=== PATIENT | male | born 1960 | race Caucasian/White ===

== ENCOUNTER → 2016-12-01 | Outpatient (REF) | payer BC ==
[2016-12-01 13:00] LABS: ANION GAP 7 MEQ/L (8-16); BLOOD UREA NITROGEN 13 MG/DL (7-18); CALCIUM LEVEL 9.3 MG/DL (8.5-10.1); CARBON DIOXIDE LEVEL 30 MEQ/L (21-32); CHLORIDE LEVEL 96 MEQ/L (98-107); CREATININE FOR GFR 0.97 MG/DL (0.70-1.30); GLOMERULAR FILTRATION RATE > 60.0 (>56); GLUCOSE, FASTING 88 MG/DL (70-105); SODIUM LEVEL 133 MEQ/L (136-145)
[2016-12-01 13:03] LABS: POTASSIUM SERUM 5.3 MEQ/L (3.5-5.1)
== END ==
LOC: M SFHCADAM 08:20
PROVIDERS: ATTEND Physician Assistant
DX: Q23.1 Congenital insufficiency of aortic valve (principal); I10 Essential (primary) hypertension

== ENCOUNTER → 2017-01-12 | Outpatient (REF) | payer BC ==
[2017-01-12 13:10] LABS: ANION GAP 8 MEQ/L (8-16); BLOOD UREA NITROGEN 14 MG/DL (7-18); CARBON DIOXIDE LEVEL 28 MEQ/L (21-32); CHLORIDE LEVEL 103 MEQ/L (98-107); CREATININE FOR GFR 0.86 MG/DL (0.70-1.30); GLOMERULAR FILTRATION RATE > 60.0 (>56); GLUCOSE, FASTING 92 MG/DL (70-105); POTASSIUM SERUM 4.4 MEQ/L (3.5-5.1); SODIUM LEVEL 139 MEQ/L (136-145)
== END ==
LOC: M SFHCPLAZ 10:59
PROVIDERS: ATTEND Physician Assistant
DX: E87.5 Hyperkalemia (principal); E87.1 Hypo-osmolality and hyponatremia

== ENCOUNTER → 2018-09-07 | Outpatient (REF) | payer BC ==
[2018-09-07 20:01] LABS: HEMATOCRIT 42.4 % (42.0-52.0); HEMOGLOBIN 14.3 g/dl (13.5-17.5); MEAN CORPUSCULAR HGB CONC 33.7 g/dl (32.0-36.5); MEAN CORPUSCULAR VOLUME 88.9 fl (80.0-96.0); PLATELET COUNT, AUTOMATED 540 10^3/uL (150-450); RED BLOOD COUNT 4.77 10^6/uL (4.30-6.10); WHITE BLOOD COUNT 11.1 10^3/uL (4.0-10.0)
[2018-09-07 20:02] LABS: ALBUMIN 3.9 GM/DL (3.2-5.2); ALT/SGPT 23 U/L (12-78); BILIRUBIN,TOTAL 0.3 MG/DL (0.2-1.0); BLOOD UREA NITROGEN 16 MG/DL (7-18); CARBON DIOXIDE LEVEL 28 MEQ/L (21-32); CHLORIDE LEVEL 102 MEQ/L (98-107); CHOLESTEROL LEVEL 211 MG/DL (<200); CHOLESTEROL RISK RATIO 2.397 (<5); CREATININE FOR GFR 1.08 MG/DL (0.70-1.30); GLOMERULAR FILTRATION RATE > 60.0 (>56); GLUCOSE, FASTING 72 MG/DL (70-100); HDL CHOLESTEROL 88 MG/DL (>40); LDL CHOLESTEROL 96 MG/DL (<100); NON-HDL-C 123 MG/DL; SODIUM LEVEL 136 MEQ/L (136-145); TOTAL PROTEIN 6.9 GM/DL (6.4-8.2); TRIGLYCERIDES LEVEL 134 MG/DL (<150)
== END ==
LOC: M SFHCADAM 15:47
PROVIDERS: ATTEND Physician Assistant
DX: I10 Essential (primary) hypertension (principal); E55.9 Vitamin D deficiency, unspecified

== ENCOUNTER → 2019-11-22 | Outpatient (REF) | payer BC | LOC: M SFHCADAM 09:04 | PROVIDERS: ATTEND Physician Assistant | DX: I10 Essential (primary) hypertension (principal); F17.200 Nicotine dependence, unspecified, uncomplicated; Z53.8 Procedure and treatment not carried out for other reasons ==

== ENCOUNTER → 2020-12-16 | Outpatient (REF) | payer BC ==
[2020-12-16 17:15] LABS: HEMOGLOBIN 15.8 g/dl (13.5-17.5); MEAN CORPUSCULAR HEMOGLOBIN 31.6 pg (27.0-33.0); MEAN CORPUSCULAR HGB CONC 34.3 g/dl (32.0-36.5); PLATELET COUNT, AUTOMATED 530 10^3/uL (150-450); WHITE BLOOD COUNT 10.7 10^3/uL (4.0-10.0)
[2020-12-16 17:47] LABS: ALT/SGPT 23 U/L (12-78); BILIRUBIN,TOTAL 0.6 MG/DL (0.2-1.0); BLOOD UREA NITROGEN 14 MG/DL (7-18); CALCIUM LEVEL 9.6 MG/DL (8.5-10.1); CARBON DIOXIDE LEVEL 30 MEQ/L (21-32); CHLORIDE LEVEL 99 MEQ/L (98-107); CHOLESTEROL LEVEL 212 MG/DL (<200); CHOLESTEROL RISK RATIO 2.231 (<5); CREATININE FOR GFR 0.86 MG/DL (0.70-1.30); FREE T4 0.84 NG/DL (0.76-1.46); GLOMERULAR FILTRATION RATE > 60.0 (>56); GLUCOSE, FASTING 77 MG/DL (70-100); HDL CHOLESTEROL 95 MG/DL (>40); LDL CHOLESTEROL 104 MG/DL (<100); NON-HDL-C 117 MG/DL; POTASSIUM SERUM 4.5 MEQ/L (3.5-5.1); SODIUM LEVEL 134 MEQ/L (136-145); THYROID STIMULATING HORMONE 0.817 uIU/ML (0.358-3.740); TOTAL PROTEIN 7.1 GM/DL (6.4-8.2); TRIGLYCERIDES LEVEL 65 MG/DL (<150)
[2020-12-16 17:50] LABS: CREATININE, URINE 63.2 MG/DL; MALB URINE SIEMENS 7.3 MG/L; MAU/CREAT RATIO 11.5 MCG/MG (0.0-30.0); TOTAL 25(OH) VITAMIN D 13.1 NG/ML (30.0-100.0)
== END ==
LOC: M SFHCADAM 11:57
PROVIDERS: ATTEND Physician Assistant
DX: K21.9 Gastro-esophageal reflux disease without esophagitis (principal); F17.210 Nicotine dependence, cigarettes, uncomplicated; I10 Essential (primary) hypertension; E55.9 Vitamin D deficiency, unspecified; Q23.1 Congenital insufficiency of aortic valve; N52.9 Male erectile dysfunction, unspecified; Z12.5 Encounter for screening for malignant neoplasm of prostate
CPT/HCPCS: 80053; 80061; 82043; 82306; 84439; 84443; 85027; G0103

== ENCOUNTER → 2021-06-29 | Outpatient (CLI) | payer BC | LOC: M CARPUL 10:14 | PROVIDERS: ATTEND Physician Assistant | DX: Q23.1 Congenital insufficiency of aortic valve (principal) ==

== ENCOUNTER → 2022-06-18 | Outpatient (CLI) | payer BC | LOC: M ADAMS 10:50 | PROVIDERS: ATTEND Physician Assistant | DX: M54.50 Low back pain, unspecified (principal) ==

== ENCOUNTER → 2022-06-18 | Outpatient (REF) | payer BC ==
[2022-06-19 15:10] LABS: HERPES ZOSTER, VARICELLA IgG 1259 index (Immune >165); HERPES ZOSTER, VARICELLA IgM <0.91 index (0.00-0.90)
== END ==
LOC: M SFHCADAM 10:46
PROVIDERS: ATTEND Physician Assistant
DX: M54.50 Low back pain, unspecified (principal)

== ENCOUNTER → 2022-07-05 | Outpatient (REF) | payer BC ==
[2022-07-05 13:36] LABS: BASO # 0.1 10^3/uL (0.0-0.2); BASO % 0.4 % (0.0-1.0); EOS % 0.1 % (0.0-3.0); HEMATOCRIT 43.1 % (42.0-52.0); HEMOGLOBIN 14.5 g/dl (13.5-17.5); LYMPH # 2.2 10^3/uL (1.5-5.0); LYMPH % 9.6 % (24.0-44.0); MEAN CORPUSCULAR HEMOGLOBIN 30.5 pg (27.0-33.0); MEAN CORPUSCULAR HGB CONC 33.6 g/dl (32.0-36.5); MEAN CORPUSCULAR VOLUME 90.5 fl (80.0-96.0); MONO # 1.3 10^3/uL (0.0-0.8); MONO % 5.4 % (2.0-8.0); NEUTROPHILS # 19.1 10^3/uL (1.5-8.5); NEUTROPHILS % 82.6 % (36.0-66.0); PLATELET COUNT, AUTOMATED 578 10^3/uL (150-450); RED BLOOD COUNT 4.76 10^6/uL (4.30-6.10); WHITE BLOOD COUNT 23.2 10^3/uL (4.0-10.0)
[2022-07-05 13:50] LABS: CREATININE, URINE 181.2 MG/DL; MAU/CREAT RATIO 3.8 MCG/MG (0.0-30.0)
[2022-07-05 16:22] LABS: ALBUMIN 3.3 G/DL (3.2-5.2); ALKALINE PHOSPHATASE 134 U/L (46-116); ALT/SGPT 16 U/L (7.0-40); AST/SGOT 14 U/L (<34); BILIRUBIN,TOTAL 0.5 MG/DL (0.3-1.2); BLOOD UREA NITROGEN 18 MG/DL (9-23); CALCIUM LEVEL 8.8 MG/DL (8.3-10.6); CARBON DIOXIDE LEVEL 28 MMOL/L (20-31); CHLORIDE LEVEL 95 MMOL/L (98-107); CHOLESTEROL LEVEL 189 MG/DL (<200); CHOLESTEROL RISK RATIO 1.95 (<5); CREATININE FOR GFR 0.92 MG/DL (0.70-1.30); FREE T4 1.14 NG/DL (0.89-1.76); GLOMERULAR FILTRATION RATE > 60.0 (>49); GLUCOSE, FASTING 100 MG/DL (74-106); HDL CHOLESTEROL 96.6 MG/DL (>40); NON-HDL-C 92 MG/DL; POTASSIUM SERUM 4.7 MMOL/L (3.5-5.1); SODIUM LEVEL 131 MMOL/L (136-145); THYROID STIMULATING HORMONE 0.881 uIU/ML (0.55-4.78); TOTAL PROTEIN 6.4 G/DL (5.7-8.2); TRIGLYCERIDES LEVEL 72 MG/DL (<150)
[2022-07-06 18:09] LABS: FREE LAMBDA LIGHT CHAINS SERUM 13.8 mg/L (5.7-26.3); KAPPA/LAMBDA RATIO SERUM 1.01 (0.26-1.65)
== END ==
LOC: M SFHCADAM 07:06
PROVIDERS: ATTEND Physician Assistant
DX: R79.82 Elevated C-reactive protein (CRP) (principal); M54.50 Low back pain, unspecified; F17.210 Nicotine dependence, cigarettes, uncomplicated; I10 Essential (primary) hypertension; E55.9 Vitamin D deficiency, unspecified; I35.0 Nonrheumatic aortic (valve) stenosis; K21.9 Gastro-esophageal reflux disease without esophagitis; E78.00 Pure hypercholesterolemia, unspecified; Z12.5 Encounter for screening for malignant neoplasm of prostate
CPT/HCPCS: 80053; 80061; 82043; 83521; 84439; 84443; 85025; 86140; G0103

== ENCOUNTER → 2022-07-06 | Outpatient (CLI) | payer BC ==
[~2022-07-06] MED LIST: PROHANCE 279.3MG/ML 15ML VIAL As Ordered ONE; PROHANCE 279.3MG/ML 5ML VIAL As Ordered ONE
== END ==
LOC: M RAD 16:09
PROVIDERS: ATTEND Physician Assistant
DX: R79.82 Elevated C-reactive protein (CRP) (principal); M54.50 Low back pain, unspecified

== ENCOUNTER → 2022-07-30 | Outpatient (REF) | payer BC ==
[2022-07-30 13:01] LABS: BASO # 0.1 10^3/uL (0.0-0.2); BASO % 0.4 % (0.0-1.0); EOS % 0.3 % (0.0-3.0); HEMATOCRIT 39.1 % (42.0-52.0); HEMOGLOBIN 13.2 g/dl (13.5-17.5); LYMPH # 2.5 10^3/uL (1.5-5.0); LYMPH % 21.3 % (24.0-44.0); MEAN CORPUSCULAR HEMOGLOBIN 30.6 pg (27.0-33.0); MEAN CORPUSCULAR HGB CONC 33.8 g/dl (32.0-36.5); MEAN CORPUSCULAR VOLUME 90.5 fl (80.0-96.0); MONO # 0.8 10^3/uL (0.0-0.8); MONO % 7.1 % (2.0-8.0); NEUTROPHILS % 68.3 % (36.0-66.0); PLATELET COUNT, AUTOMATED 453 10^3/uL (150-450); RED BLOOD COUNT 4.32 10^6/uL (4.30-6.10); WHITE BLOOD COUNT 11.8 10^3/uL (4.0-10.0)
[2022-07-30 13:22] LABS: BLOOD UREA NITROGEN 19 MG/DL (9-23); CALCIUM LEVEL 9.1 MG/DL (8.3-10.6); CARBON DIOXIDE LEVEL 29 MMOL/L (20-31); CHLORIDE LEVEL 97 MMOL/L (98-107); CREATININE FOR GFR 0.79 MG/DL (0.70-1.30); GLOMERULAR FILTRATION RATE > 60.0 (>49); GLUCOSE, FASTING 112 MG/DL (74-106); POTASSIUM SERUM 4.4 MMOL/L (3.5-5.1); SODIUM LEVEL 133 MMOL/L (136-145)
== END ==
LOC: M SFHCADAM 07:10
PROVIDERS: ATTEND Physician Assistant
DX: M35.3 Polymyalgia rheumatica (principal)

== ENCOUNTER 2022-11-01 08:29 | Emergency (ER) | payer BC ==
[~2022-11-01] VITALS: Ht 175.3 cm; Wt 84.7 kg
[2022-11-01 09:54] LABS: BASO # 0.1 10^3/uL (0.0-0.2); EOS # 0.1 10^3/uL (0.0-0.5); EOS % 0.8 % (0.0-3.0); HEMATOCRIT 45.4 % (42.0-52.0); HEMOGLOBIN 15.3 g/dl (13.5-17.5); LYMPH # 1.9 10^3/uL (1.5-5.0); LYMPH % 17.6 % (24.0-44.0); MEAN CORPUSCULAR HEMOGLOBIN 29.4 pg (27.0-33.0); MEAN CORPUSCULAR HGB CONC 33.7 g/dl (32.0-36.5); MEAN CORPUSCULAR VOLUME 87.1 fl (80.0-96.0); MONO # 0.6 10^3/uL (0.0-0.8); NEUTROPHILS # 7.8 10^3/uL (1.5-8.5); PLATELET COUNT, AUTOMATED 506 10^3/uL (150-450); RED BLOOD COUNT 5.21 10^6/uL (4.30-6.10); WHITE BLOOD COUNT 10.5 10^3/uL (4.0-10.0)
[2022-11-01 10:06] LABS: ERYTHROCYTE SEDIMENTATION RATE 15 mm/hr (0-20)
[2022-11-01 10:41] LABS: BLOOD UREA NITROGEN 15 MG/DL (9-23); CARBON DIOXIDE LEVEL 27 MMOL/L (20-31); CHLORIDE LEVEL 100 MMOL/L (98-107); CREATININE FOR GFR 0.73 MG/DL (0.70-1.30); GLOMERULAR FILTRATION RATE > 60.0 (>49); GLUCOSE, FASTING 120 MG/DL (74-106); POTASSIUM SERUM 4.1 MMOL/L (3.5-5.1); SODIUM LEVEL 132 MMOL/L (136-145)
[2022-11-01] MEDS ORDERED: CYCL-707 PO (12:35)
[2022-11-01 12:49] VITALS: BP 179/79; TEMP 97.4; O2SAT 99
== END 2022-11-01 12:52 | disposition home or self-care (01) ==
LOC: M ED 08:29
DX: M54.6 Pain in thoracic spine (principal); I10 Essential (primary) hypertension; F17.200 Nicotine dependence, unspecified, uncomplicated; F10.10 Alcohol abuse, uncomplicated; Z79.899 Other long term (current) drug therapy

== ENCOUNTER → 2024-01-27 | Outpatient (REF) | payer BC ==
[~2024-01-27] MED LIST changes: +CYCL-707 PO; -PROHANCE 279.3MG/ML 15ML VIAL As Ordered ONE; -PROHANCE 279.3MG/ML 5ML VIAL As Ordered ONE
[2024-01-27 13:32] LABS: BASO # 0.1 10^3/uL (0.0-0.2); BASO % 1.2 % (0.0-1.0); EOS # 0.1 10^3/uL (0.0-0.5); EOS % 0.7 % (0.0-3.0); HEMOGLOBIN 14.4 g/dl (13.5-17.5); LYMPH # 1.8 10^3/uL (1.5-5.0); LYMPH % 23.9 % (24.0-44.0); MEAN CORPUSCULAR HGB CONC 34.3 g/dl (32.0-36.5); MEAN CORPUSCULAR VOLUME 90.5 fl (80.0-96.0); MONO # 0.6 10^3/uL (0.0-0.8); MONO % 7.5 % (2.0-8.0); NEUTROPHILS # 4.8 10^3/uL (1.5-8.5); PLATELET COUNT, AUTOMATED 524 10^3/uL (150-450); RED BLOOD COUNT 4.64 10^6/uL (4.30-6.10); WHITE BLOOD COUNT 7.3 10^3/uL (4.0-10.0)
[2024-01-27 13:39] LABS: ALBUMIN 3.8 G/DL (3.2-5.2); ALKALINE PHOSPHATASE 124 U/L (46-116); ALT/SGPT 15 U/L (7.0-40); AST/SGOT 14 U/L (<34); BILIRUBIN,TOTAL 0.5 MG/DL (0.3-1.2); BLOOD UREA NITROGEN 17 MG/DL (9-23); CALCIUM LEVEL 9.6 MG/DL (8.3-10.6); CARBON DIOXIDE LEVEL 30 MMOL/L (20-31); CHLORIDE LEVEL 99 MMOL/L (98-107); CHOLESTEROL LEVEL 188 MG/DL (<200); CHOLESTEROL RISK RATIO 2.45 (<5); CREATININE FOR GFR 0.89 MG/DL (0.70-1.30); GLOMERULAR FILTRATION RATE > 60.0 (>49); GLUCOSE, FASTING 87 MG/DL (74-106); HDL CHOLESTEROL 76.6 MG/DL (>40); NON-HDL-C 111.4 MG/DL; POTASSIUM SERUM 5.2 MMOL/L (3.5-5.1); SODIUM LEVEL 130 MMOL/L (136-145); TOTAL PROTEIN 6.7 G/DL (5.7-8.2); TRIGLYCERIDES LEVEL 62 MG/DL (<150)
[2024-01-27 13:40] LABS: RHEUMATOID FACTOR QUANT 12.2 IU/ML (<14); THYROID STIMULATING HORMONE 0.999 uIU/ML (0.55-4.78)
[2024-01-27 13:41] LABS: FREE T4 1.02 NG/DL (0.89-1.76)
[2024-01-27 13:56] LABS: HEMOGLOBIN A1c 4.8 % (4.0-6.0)
== END ==
LOC: M SFHCADAM 07:48
PROVIDERS: ATTEND Physician Assistant
DX: I35.0 Nonrheumatic aortic (valve) stenosis (principal); I10 Essential (primary) hypertension; F17.210 Nicotine dependence, cigarettes, uncomplicated; E53.8 Deficiency of other specified B group vitamins; R76.8 Other specified abnormal immunological findings in serum; M13.0 Polyarthritis, unspecified

== ENCOUNTER 2024-08-10 05:56 | Inpatient (IN) | payer BC ==
[~2024-08-10] VITALS: Ht 175.3 cm; Wt 77.0 kg
[2024-08-10] MEDS ORDERED: IPRATROPIUM 0.5MG/ALBUTEROL 2.5MG INH SOL UD 3ML As Ordered ONE (06:09)
[2024-08-10] MEDS: IPRATROPIUM 0.5MG/ALBUTEROL 2.5MG INH SOL UD 3ML NEB ONE ×2 (06:29→06:30)
[2024-08-10 06:51] LABS: VENOUS BASE EXCESS 1.3 (-2.0-2.0); VENOUS HCO3 27.3 MMOL/L (23.0-27.0); VENOUS O2 SATURATION 68.8 % (60.0-80.0); VENOUS PARTIAL PRESSURE CO2 48.1 mmHg (38.0-50.0); VENOUS PARTIAL PRESSURE O2 36.8 mmHg (30.0-50.0); VENOUS PH 7.372 UNITS (7.330-7.430); VENOUS STANDARD HCO3 24.8 MMOL/L; VENOUS TOTAL CO2 28.8 MMOL/L (24.0-28.0)
[2024-08-10 07:00] LABS: HEMATOCRIT 41.6 % (42.0-52.0); HEMOGLOBIN 14.5 g/dl (13.5-17.5); MEAN CORPUSCULAR HEMOGLOBIN 31.3 pg (27.0-33.0); MEAN CORPUSCULAR HGB CONC 34.9 g/dl (32.0-36.5); MEAN CORPUSCULAR VOLUME 89.8 fl (80.0-96.0); PLATELET COUNT, AUTOMATED 442 10^3/uL (150-450); RED BLOOD COUNT 4.63 10^6/uL (4.30-6.10); WHITE BLOOD COUNT 17.7 10^3/uL (4.0-10.0)
[2024-08-10] MEDS: FUROSEMIDE 100MG/10ML VIAL IV ONE (07:09)
[2024-08-10 07:20] LABS: CK-MB VALUE MASS 2.3 NG/ML (<3.6)
[2024-08-10 07:23] LABS: ALBUMIN 3.5 G/DL (3.2-5.2); ALKALINE PHOSPHATASE 121 U/L (40-129); ALT/SGPT 12 U/L (7.0-40); AST/SGOT 16 U/L (<34); BILIRUBIN,DIRECT 0.1 MG/DL (<0.4); BILIRUBIN,TOTAL 0.4 MG/DL (0.3-1.2); BLOOD UREA NITROGEN 19 MG/DL (9-23); CALCIUM LEVEL 9.1 MG/DL (8.3-10.6); CARBON DIOXIDE LEVEL 27 MMOL/L (20-31); CHLORIDE LEVEL 96 MMOL/L (98-107); CPK CREATINE PHOSPHOKINASE 50 U/L (46-171); CREATININE FOR GFR 0.92 MG/DL (0.70-1.30); GLOMERULAR FILTRATION RATE > 90.0 (>49); GLUCOSE, FASTING 107 MG/DL (74-106); POTASSIUM SERUM 4.9 MMOL/L (3.5-5.1); SODIUM LEVEL 131 MMOL/L (136-145); TOTAL PROTEIN 6.7 G/DL (5.7-8.2)
[2024-08-10 07:24] LABS: THYROXINE (T4) 7.1 UG/DL (4.5-10.9)
[2024-08-10 07:25] LABS: THYROID STIMULATING HORMONE 1.871 uIU/ML (0.55-4.78)
[2024-08-10 07:26] LABS: BASOPHILS 2 % (0-1); EOSINOPHILS 1 % (0-3); LYMPHOCYTES 5 % (16-44); MONOCYTES 3 % (0-5); NEUTROPHILS 89 % (28-66)
[2024-08-10 07:27] LABS: PLATELET ESTIMATE INCREASED (NORMAL)
[2024-08-10] MEDS ORDERED: ISOVUE-370 76% 100ML VIAL As Ordered ONE (07:33)
[2024-08-10] MEDS: methylPREDNISolone 125MG 2ML VIAL IV ONE (07:41)
[2024-08-10 08:11] LABS: CK-MB VALUE MASS 2.3 NG/ML (<3.6)
[2024-08-10 08:12] LABS: MB/CK RELATIVE INDEX 4.42 (< OR =4)
[2024-08-10] MEDS: ASPIRIN 81MG CHEW TABLET PO ONE (08:26)
[2024-08-10 08:46] LABS: PROCALCITONIN 0.05 ng/ml
[2024-08-10 10:23] LABS: CK-MB VALUE MASS 1.8 NG/ML (<3.6); MB/CK RELATIVE INDEX 3.33 (< OR =4)
[2024-08-10] MEDS ORDERED: LISI20TA35 PO (11:07)
[2024-08-10] MEDS ORDERED: OMEP40CA5 PO (11:07)
[2024-08-10] MEDS ORDERED: HOME MED LIST COMPLETE! XX SCH (11:10)
[2024-08-10] MEDS ORDERED: ACETAMINOPHEN 325 MG TAB PO PRN (12:05)
[2024-08-10] MEDS: FUROSEMIDE 40MG/4ML VIAL IV STA (13:23)
[2024-08-10] MEDS: DIGOXIN INJ 0.5 MG/2 ML AMP IV STA (14:24)
[2024-08-10] MEDS: AMIODARONE HCL 150 MG in IV 1 EA IV STA (15:21)
[2024-08-10] MEDS: AMIODARONE HCL 360 MG in IV 1 EA IV SCH ×2 (15:35→21:44)
[2024-08-10] MEDS ORDERED: HEPARIN SOD (PORCINE) 5000UNITS/ML 1ML VIAL/SYRINGE IV PRN (15:40)
[2024-08-10] MEDS: HEPARIN SOD (PORCINE) 5000UNITS/ML 1ML VIAL/SYRINGE IV ONE (16:12)
[2024-08-10] MEDS: HEPARIN DRIP 25,000 UNITS in IV 1 EA IV SCH (16:14)
[2024-08-10 16:38] LABS: INR 0.84; PARTIAL THROMBOPLASTIN TIME 29.2 SECONDS (24.8-34.2); PROTHROMBIN TIME 11.8 SECONDS (12.5-14.5)
[2024-08-10 16:50] VITALS: BP 110/72; TEMP 97.7; O2SAT 97
[2024-08-10] MEDS ORDERED: LORazepam 2 MG TAB PO PRN (17:45)
[2024-08-10] MEDS: chlordiazePOXIDE 25 MG CAP PO SCH (18:22)
[2024-08-10] MEDS: FOLIC ACID 1MG TAB PO SCH (18:22)
[2024-08-10] MEDS: THIAMINE 100 MG TAB PO ONE (18:22)
[2024-08-10] MEDS: OMEPRAZOLE 20MG CAP PO SCH (18:22)
[2024-08-10] MEDS: MULTIVITAMINS/MINERALS THERAP 1 TAB PO SCH (18:25)
[2024-08-10 19:25] VITALS: BP 109/63; TEMP 98.8; O2SAT 96
[2024-08-10] MEDS: NICOTINE 21MG/24HR 1 EA TRANSDERMAL TD SCH (20:29)
[2024-08-11] VITALS (10 sets, daily range): BP systolic 105–122; BP diastolic 68–73; TEMP 97–98.2; O2SAT 96–98
[2024-08-11] MEDS: PIPERACILLIN/TAZOBACTAM SOD 3.375 GM in DEXTROSE 5% (D5W) ADV/MINI-BAG 50 ML IV SCH ×2 (02:49→13:53)
[2024-08-11 03:02] LABS: INR 0.86; PARTIAL THROMBOPLASTIN TIME 40.1 SECONDS (24.8-34.2)
[2024-08-11 06:11] LABS: BASO % 0.3 % (0.0-1.0); HEMATOCRIT 38.4 % (42.0-52.0); HEMOGLOBIN 13.4 g/dl (13.5-17.5); LYMPH # 1.4 10^3/uL (1.5-5.0); LYMPH % 10.1 % (24.0-44.0); MEAN CORPUSCULAR HEMOGLOBIN 30.8 pg (27.0-33.0); MEAN CORPUSCULAR HGB CONC 34.9 g/dl (32.0-36.5); MEAN CORPUSCULAR VOLUME 88.3 fl (80.0-96.0); MONO # 0.9 10^3/uL (0.0-0.8); MONO % 6.4 % (2.0-8.0); NEUTROPHILS # 11.6 10^3/uL (1.5-8.5); NEUTROPHILS % 82.5 % (36.0-66.0); PLATELET COUNT, AUTOMATED 427 10^3/uL (150-450); RED BLOOD COUNT 4.35 10^6/uL (4.30-6.10); WHITE BLOOD COUNT 14.1 10^3/uL (4.0-10.0)
[2024-08-11 06:33] LABS: BLOOD UREA NITROGEN 22 MG/DL (9-23); CALCIUM LEVEL 9.2 MG/DL (8.3-10.6); CARBON DIOXIDE LEVEL 26 MMOL/L (20-31); CHLORIDE LEVEL 95 MMOL/L (98-107); CREATININE FOR GFR 0.91 MG/DL (0.70-1.30); GLOMERULAR FILTRATION RATE > 90.0 (>49); GLUCOSE, FASTING 91 MG/DL (74-106); MAGNESIUM LEVEL 1.8 MG/DL (1.8-2.4); POTASSIUM SERUM 4.2 MMOL/L (3.5-5.1); SODIUM LEVEL 130 MMOL/L (136-145)
[2024-08-11] MEDS: THIAMINE 100 MG TAB PO SCH (08:14)
[2024-08-11 10:10] LABS: INR 0.88; PARTIAL THROMBOPLASTIN TIME 48.7 SECONDS (24.8-34.2); PROTHROMBIN TIME 12.3 SECONDS (12.5-14.5)
[2024-08-11] MEDS: MIRALAX *UNIT DOSE* 17GM PACKET PO PRN (17:09)
[2024-08-11] MEDS: SENOKOT S TAB PO PRN (17:09)
[2024-08-11] MEDS: ENOXAPARIN 80MG/0.8ML SYRINGE (J1650 PER 10MG) SC SCH (18:17)
[2024-08-11] MEDS: AMIODARONE 200 MG TAB (PACERONE) PO SCH (20:27)
[2024-08-11] MEDS ORDERED: ENOXAPARIN 40MG/0.4ML SYRINGE (J1650 PER 10MG) SC SCH (21:00)
[2024-08-12 03:39] VITALS: BP 106/67; TEMP 98; O2SAT 98
[2024-08-12 06:10] LABS: BASO # 0.1 10^3/uL (0.0-0.2); EOS # 0.1 10^3/uL (0.0-0.5); EOS % 0.6 % (0.0-3.0); HEMATOCRIT 37.8 % (42.0-52.0); LYMPH # 1.3 10^3/uL (1.5-5.0); LYMPH % 14.5 % (24.0-44.0); MEAN CORPUSCULAR HEMOGLOBIN 30.5 pg (27.0-33.0); MEAN CORPUSCULAR HGB CONC 34.4 g/dl (32.0-36.5); MEAN CORPUSCULAR VOLUME 88.7 fl (80.0-96.0); MONO # 0.5 10^3/uL (0.0-0.8); MONO % 6.1 % (2.0-8.0); NEUTROPHILS # 6.9 10^3/uL (1.5-8.5); NEUTROPHILS % 77.2 % (36.0-66.0); PLATELET COUNT, AUTOMATED 404 10^3/uL (150-450); RED BLOOD COUNT 4.26 10^6/uL (4.30-6.10); WHITE BLOOD COUNT 8.9 10^3/uL (4.0-10.0)
[2024-08-12 06:23] LABS: BLOOD UREA NITROGEN 19 MG/DL (9-23); CALCIUM LEVEL 8.9 MG/DL (8.3-10.6); CARBON DIOXIDE LEVEL 27 MMOL/L (20-31); CHLORIDE LEVEL 99 MMOL/L (98-107); CREATININE FOR GFR 0.87 MG/DL (0.70-1.30); GLOMERULAR FILTRATION RATE > 90.0 (>49); GLUCOSE, FASTING 88 MG/DL (74-106); MAGNESIUM LEVEL 1.7 MG/DL (1.8-2.4); POTASSIUM SERUM 4.6 MMOL/L (3.5-5.1); SODIUM LEVEL 133 MMOL/L (136-145)
[2024-08-12 07:41] VITALS: BP 123/83; TEMP 97.4; O2SAT 96
[2024-08-12] MEDS: MAG SULF 1GM/100ML (MAG RUN) 1 GM in IV 1 EA IV SCH (09:14)
[2024-08-12 10:39] LABS: C REACTIVE PROTEIN QUANTITATIV 1.29 MG/DL (<1.0)
[2024-08-12 12:01] VITALS: BP 102/72; TEMP 97.5; O2SAT 98
[2024-08-12 16:21] VITALS: BP 108/74; TEMP 97.4; O2SAT 95
[2024-08-12 19:12] VITALS: BP 111/68; TEMP 97; O2SAT 98
[2024-08-12 23:01] VITALS: BP 112/78; TEMP 97.4; O2SAT 94
[2024-08-13 03:24] VITALS: BP 114/71; TEMP 97.3; O2SAT 99
[2024-08-13 06:12] LABS: BASO # 0.1 10^3/uL (0.0-0.2); BASO % 0.6 % (0.0-1.0); EOS # 0.1 10^3/uL (0.0-0.5); EOS % 0.7 % (0.0-3.0); HEMATOCRIT 37.7 % (42.0-52.0); HEMOGLOBIN 13.3 g/dl (13.5-17.5); LYMPH # 1.3 10^3/uL (1.5-5.0); LYMPH % 10.3 % (24.0-44.0); MEAN CORPUSCULAR HEMOGLOBIN 31.1 pg (27.0-33.0); MEAN CORPUSCULAR HGB CONC 35.3 g/dl (32.0-36.5); MEAN CORPUSCULAR VOLUME 88.3 fl (80.0-96.0); MONO # 0.6 10^3/uL (0.0-0.8); MONO % 4.5 % (2.0-8.0); NEUTROPHILS # 10.2 10^3/uL (1.5-8.5); NEUTROPHILS % 83.2 % (36.0-66.0); PLATELET COUNT, AUTOMATED 409 10^3/uL (150-450); RED BLOOD COUNT 4.27 10^6/uL (4.30-6.10); WHITE BLOOD COUNT 12.2 10^3/uL (4.0-10.0)
[2024-08-13 06:36] LABS: BLOOD UREA NITROGEN 14 MG/DL (9-23); CALCIUM LEVEL 8.5 MG/DL (8.3-10.6); CARBON DIOXIDE LEVEL 25 MMOL/L (20-31); CHLORIDE LEVEL 97 MMOL/L (98-107); CREATININE FOR GFR 0.85 MG/DL (0.70-1.30); GLOMERULAR FILTRATION RATE > 90.0 (>49); GLUCOSE, FASTING 99 MG/DL (74-106); MAGNESIUM LEVEL 1.9 MG/DL (1.8-2.4); POTASSIUM SERUM 4.6 MMOL/L (3.5-5.1); SODIUM LEVEL 128 MMOL/L (136-145)
[2024-08-13 06:43] VITALS: BP 116/86; TEMP 97.4; O2SAT 95
[2024-08-13] MEDS ORDERED: ENOX40IN3 SC (06:48)
[2024-08-13] MEDS ORDERED: PACE200T PO (06:48)
== END 2024-08-13 06:50 | disposition short-term general hospital (02) | DRG 194 ==
LOC: M ED 05:56 → M ED INP 10:52 → M PCU 16:24
PROVIDERS: ADMIT Internal Medicine; ATTEND Internal Medicine
DX: I11.0 Hypertensive heart disease with heart failure (principal); J90 Pleural effusion, not elsewhere classified; I48.92 Unspecified atrial flutter; I35.0 Nonrheumatic aortic (valve) stenosis; I25.10 Atherosclerotic heart disease of native coronary artery without angina pectoris; K21.9 Gastro-esophageal reflux disease without esophagitis; F10.10 Alcohol abuse, uncomplicated; F12.90 Cannabis use, unspecified, uncomplicated; F17.200 Nicotine dependence, unspecified, uncomplicated; I48.91 Unspecified atrial fibrillation; N52.9 Male erectile dysfunction, unspecified; Z79.899 Other long term (current) drug therapy; I50.23 Acute on chronic systolic (congestive) heart failure

== ENCOUNTER → 2024-09-06 | Outpatient (REF) | payer BC ==
[~2024-09-06] MED LIST changes: +ENOX40IN3 SC; +LISI20TA35 PO; +OMEP40CA5 PO; +PACE200T PO
[2024-09-06 13:59] LABS: HEMOGLOBIN 11.8 g/dl (13.5-17.5); MEAN CORPUSCULAR HGB CONC 33.7 g/dl (32.0-36.5); MEAN CORPUSCULAR VOLUME 89.1 fl (80.0-96.0); PLATELET COUNT, AUTOMATED 550 10^3/uL (150-450); RED BLOOD COUNT 3.93 10^6/uL (4.30-6.10); WHITE BLOOD COUNT 10.5 10^3/uL (4.0-10.0)
[2024-09-06 14:17] LABS: ALBUMIN 3.2 G/DL (3.2-5.2); BILIRUBIN,TOTAL 0.4 MG/DL (0.3-1.2); CALCIUM LEVEL 8.8 MG/DL (8.3-10.6); CREATININE FOR GFR 1.1 MG/DL (0.70-1.30); GLOMERULAR FILTRATION RATE 75.9 (>49); MAGNESIUM LEVEL 1.8 MG/DL (1.8-2.4); POTASSIUM SERUM 4.8 MMOL/L (3.5-5.1); TOTAL PROTEIN 6.3 G/DL (5.7-8.2)
== END ==
LOC: M SFHCADAM 11:03
PROVIDERS: ATTEND Physician Assistant
DX: I50.22 Chronic systolic (congestive) heart failure (principal); I48.19 Other persistent atrial fibrillation; Z95.2 Presence of prosthetic heart valve

== ENCOUNTER → 2024-09-06 | Outpatient (CLI) | payer BC | LOC: M ADAMS 11:10 | PROVIDERS: ATTEND Physician Assistant | DX: R06.00 Dyspnea, unspecified (principal); J90 Pleural effusion, not elsewhere classified; J84.89 Other specified interstitial pulmonary diseases; J81.1 Chronic pulmonary edema ==

== ENCOUNTER 2024-11-01 10:39 | Emergency (ER) | payer BC ==
[~2024-11-01] VITALS: Ht 175.3 cm; Wt 90.3 kg
[~2024-11-01 10:39] MED LIST changes: +AMIO200T54 PO; +ASPI81CH48 PO; +ELIQ5TAB PO; +FOLI1TAB11 PO; +FURO40TA2 PO; +KETO-204 PO; +METO1TAB7 PO; +SPIR-10 PO
[2024-11-01] MEDS ORDERED: BENA25CA4 PO (11:33)
[2024-11-01] MEDS ORDERED: HOME MED LIST COMPLETE! XX SCH (11:35)
[2024-11-01 11:38] LABS: VENOUS BASE EXCESS -2.0 (-2.0-2.0); VENOUS HCO3 23.0 MMOL/L (23.0-27.0); VENOUS O2 SATURATION 57.1 % (60.0-80.0); VENOUS PARTIAL PRESSURE CO2 40.1 mmHg (38.0-50.0); VENOUS PARTIAL PRESSURE O2 31.4 mmHg (30.0-50.0); VENOUS PH 7.376 UNITS (7.330-7.430); VENOUS STANDARD HCO3 21.9 MMOL/L; VENOUS TOTAL CO2 24.2 MMOL/L (24.0-28.0)
[2024-11-01 11:43] LABS: BASO # 0.1 10^3/uL (0.0-0.2); BASO % 0.8 % (0.0-1.0); EOS # 0.0 10^3/uL (0.0-0.5); EOS % 0.3 % (0.0-3.0); LYMPH # 1.7 10^3/uL (1.5-5.0); LYMPH % 14.2 % (24.0-44.0); MONO # 0.7 10^3/uL (0.0-0.8); MONO % 6.2 % (2.0-8.0); NEUTROPHILS # 9.2 10^3/uL (1.5-8.5); NEUTROPHILS % 77.6 % (36.0-66.0); PLATELET COUNT, AUTOMATED 387 10^3/uL (150-450)
[2024-11-01 12:09] LABS: ALT/SGPT 136.0 U/L (7.0-40); AST/SGOT 127.0 U/L (<34); CALCIUM LEVEL 9.0 MG/DL (8.3-10.6); CARBON DIOXIDE LEVEL 23.0 MMOL/L (20-31); CHLORIDE LEVEL 93.0 MMOL/L (98-107); CREATININE FOR GFR 1.21 MG/DL (0.70-1.30); GLOMERULAR FILTRATION RATE 67.7 (>49); POTASSIUM SERUM 5.1 MMOL/L (3.5-5.1); SODIUM LEVEL 128.0 MMOL/L (136-145)
[2024-11-01] MEDS ORDERED: ISOVUE-370 76% 100 ML VIAL As Ordered ONE (12:33)
[2024-11-01] MEDS: FUROSEMIDE 100 MG/10 ML VIAL IV ONE (14:27)
[2024-11-01 14:35] VITALS: BP 154/67; TEMP 97.3; O2SAT 98
[2024-11-08] MEDS ORDERED: SILD100T PO (12:53)
== END 2024-11-01 14:50 | disposition home or self-care (01) ==
LOC: EDBD 10:39 → M ED 10:39
DX: I50.9 Heart failure, unspecified (principal); I10 Essential (primary) hypertension; R16.0 Hepatomegaly, not elsewhere classified; K76.0 Fatty (change of) liver, not elsewhere classified; K40.90 Unilateral inguinal hernia, without obstruction or gangrene, not specified as recurrent; K59.00 Constipation, unspecified; Z86.79 Personal history of other diseases of the circulatory system; Z79.01 Long term (current) use of anticoagulants; Z79.82 Long term (current) use of aspirin; Z79.899 Other long term (current) drug therapy
CPT/HCPCS: 71045; 71275; 74177; 80048; 80076; 82803; 83880; 84443; 85025; 87486; 87581; 87633; 87798; 93005; 93041; 94760; 96374; 99285; J1938; Q9967

== ENCOUNTER → 2024-11-07 | Outpatient (CLI) | payer BC ==
[~2024-11-07] MED LIST changes: +BENA25CA4 PO; +SILD100T PO
[2024-11-07 11:53] LABS: BASO # 0.1 10^3/uL (0.0-0.2); BASO % 0.7 % (0.0-1.0); EOS # 0.1 10^3/uL (0.0-0.5); EOS % 0.6 % (0.0-3.0); LYMPH # 1.6 10^3/uL (1.5-5.0); LYMPH % 14.3 % (24.0-44.0); MONO # 0.6 10^3/uL (0.0-0.8); MONO % 5.1 % (2.0-8.0); NEUTROPHILS # 8.8 10^3/uL (1.5-8.5); NEUTROPHILS % 78.3 % (36.0-66.0); PLATELET COUNT, AUTOMATED 440 10^3/uL (150-450)
[2024-11-07 12:33] LABS: ALT/SGPT 58.0 U/L (7.0-40); AST/SGOT 33.0 U/L (<34); CALCIUM LEVEL 9.1 MG/DL (8.3-10.6); CARBON DIOXIDE LEVEL 28.0 MMOL/L (20-31); CHLORIDE LEVEL 93.0 MMOL/L (98-107); CREATININE FOR GFR 1.2 MG/DL (0.70-1.30); GLOMERULAR FILTRATION RATE 68.4 (>49); MAGNESIUM LEVEL 1.9 MG/DL (1.8-2.4); POTASSIUM SERUM 4.6 MMOL/L (3.5-5.1); SODIUM LEVEL 131.0 MMOL/L (136-145)
== END ==
LOC: M RAD 10:31
PROVIDERS: ATTEND Physician Assistant
DX: I50.23 Acute on chronic systolic (congestive) heart failure (principal); I48.19 Other persistent atrial fibrillation; J90 Pleural effusion, not elsewhere classified; Z95.2 Presence of prosthetic heart valve

== ENCOUNTER → 2024-12-27 | Outpatient (REF) | payer BC ==
[2024-12-27 17:35] LABS: APPEARANCE, URINE CLEAR (CLEAR); BACTERIA, URINE AUTO NEGATIVE (NEGATIVE); BILIRUBIN, URINE AUTO NEGATIVE (NEGATIVE); BLOOD, URINE BLOOD NEGATIVE (NEGATIVE); GLUCOSE, URINE (UA) AUTO NEGATIVE (NEGATIVE); KETONE, URINE AUTO NEGATIVE (NEGATIVE); LEUKOCYTE ESTERASE, URINE AUTO NEGATIVE (NEGATIVE); NITRITE, URINE AUTO NEGATIVE (NEGATIVE); PROTEIN, URINE AUTO NEGATIVE (NEGATIVE); RBC, URINE AUTO 0 /HPF (0-3); SPECIFIC GRAVITY URINE AUTO 1.011 (1.002-1.035); SQUAMOUS EPITHELIAL CELL UR AU 0 /HPF (0-6); UROBILINOGEN, URINE AUTO 0.2 mg/dL (0.0-2.0); WBC, URINE AUTO 0 /HPF (0-3)
== END ==
LOC: M SFHCADAM 16:43
PROVIDERS: ATTEND Physician Assistant
DX: R39.11 Hesitancy of micturition (principal)

== ENCOUNTER → 2025-01-09 | Outpatient (REF) | payer BC ==
[2025-01-09 14:33] LABS: BASO # 0.1 10^3/uL (0.0-0.2); BASO % 1.5 % (0.0-1.0); EOS # 0.2 10^3/uL (0.0-0.5); EOS % 2.5 % (0.0-3.0); LYMPH # 2.0 10^3/uL (1.5-5.0); LYMPH % 26.5 % (24.0-44.0); MONO # 0.7 10^3/uL (0.0-0.8); MONO % 8.6 % (2.0-8.0); NEUTROPHILS # 4.6 10^3/uL (1.5-8.5); NEUTROPHILS % 60.4 % (36.0-66.0); PLATELET COUNT, AUTOMATED 448 10^3/uL (150-450)
[2025-01-09 15:02] LABS: ALT/SGPT 31.0 U/L (7.0-40); AST/SGOT 25.0 U/L (<34); CALCIUM LEVEL 9.0 MG/DL (8.3-10.6); CARBON DIOXIDE LEVEL 28.0 MMOL/L (20-31); CHLORIDE LEVEL 98.0 MMOL/L (98-107); CREATININE FOR GFR 0.96 MG/DL (0.70-1.30); GLOMERULAR FILTRATION RATE 89.4 (>49); POTASSIUM SERUM 4.2 MMOL/L (3.5-5.1); PSA SCREENING 0.44 NG/ML (< 4.00); SODIUM LEVEL 135.0 MMOL/L (136-145)
== END ==
LOC: M SFHCADAM 11:07
PROVIDERS: ATTEND Physician Assistant
DX: I48.19 Other persistent atrial fibrillation (principal); Z12.5 Encounter for screening for malignant neoplasm of prostate; Z95.2 Presence of prosthetic heart valve; I50.22 Chronic systolic (congestive) heart failure
CPT/HCPCS: 80053; 85025; G0103

== ENCOUNTER → 2025-03-14 | Outpatient (REF) | payer BC ==
[2025-03-14 15:11] LABS: CHOLESTEROL LEVEL 176.0 MG/DL (<200); CHOLESTEROL RISK RATIO 2.3 (<5); IRON (FE) 62.0 UG/DL (65-175); LDL CHOLESTEROL 86.1 MG/DL (<100); NON-HDL-C 99.7 MG/DL; PERCENT SATURATION 13.8 % (19.7-50.0); TRIGLYCERIDES LEVEL 68.0 MG/DL (<150)
[2025-03-14 15:14] LABS: VITAMIN B12 LEVEL 328.0 PG/ML (211-911)
== END ==
LOC: M SFHCADAM 09:45
PROVIDERS: ATTEND Physician Assistant
DX: D64.9 Anemia, unspecified (principal); Z13.220 Encounter for screening for lipoid disorders

== ENCOUNTER → 2025-04-29 | Outpatient (REF) | payer BC ==
[2025-04-29 18:56] LABS: APPEARANCE, URINE HAZY (CLEAR); BACTERIA, URINE AUTO 1+ (NEGATIVE); BILIRUBIN, URINE AUTO NEGATIVE (NEGATIVE); BLOOD, URINE BLOOD 2+ (NEGATIVE); GLUCOSE, URINE (UA) AUTO NEGATIVE (NEGATIVE); KETONE, URINE AUTO NEGATIVE (NEGATIVE); LEUKOCYTE ESTERASE, URINE AUTO 2+ (NEGATIVE); MUCUS, URINE SMALL (NEGATIVE); NITRITE, URINE AUTO NEGATIVE (NEGATIVE); PROTEIN, URINE AUTO NEGATIVE (NEGATIVE); RBC, URINE AUTO 9 /HPF (0-3); SPECIFIC GRAVITY URINE AUTO 1.006 (1.002-1.035); SQUAMOUS EPITHELIAL CELL UR AU 0 /HPF (0-6); UROBILINOGEN, URINE AUTO 0.2 mg/dL (0.0-2.0); WBC, URINE AUTO 68 /HPF (0-3)
== END ==
LOC: M SFHCADAM 11:59
DX: R31.0 Gross hematuria (principal)